=== PATIENT | female | born 1985 | race Caucasian/White ===

== ENCOUNTER → 2022-07-30 | Outpatient (CLI) | payer BC ==
[~2022-07-30] MED LIST: BETA300T PO; D3400CAP PO; GNP45TAB2 PO; IRONTAB2 PO; MULT1TAB7 PO; OMEGCAP PO; PROBCAP14 PO; VITATAB74 PO; [UNRECOGNIZED DRUG - CODE] XX
== END ==
LOC: M LABSMTC 09:36
PROVIDERS: ATTEND Anesthesiology
DX: Z01.818 Encounter for other preprocedural examination (principal); Z11.52 Encounter for screening for COVID-19

== ENCOUNTER 2022-08-04 06:58 | Day surgery (SDC) | payer BC ==
[~2022-08-04] VITALS: Ht 172.7 cm; Wt 65.3 kg
[~2022-08-04 06:58] MED LIST changes: +NS 1,000 ML IV ONE
[2022-08-04] MEDS ORDERED: LIDOCAINE 2% 100MG/5ML SDV (FOR ANES.) As Ordered ONE (07:00)
[2022-08-04] MEDS ORDERED: propofoL 200 MG/20 ML VIAL As Ordered ONE ×2 (07:00→08:32)
[2022-08-04] MEDS ORDERED: fentaNYL 100 MCG/2 ML INJECTION As Ordered ONE (07:13)
[2022-08-04 09:00] VITALS: BP 104/58
== END 2022-08-04 09:08 | disposition home or self-care (01) ==
LOC: M OPP 06:58
PROVIDERS: ATTEND Internal Medicine Gastroenterology
DX: D50.9 Iron deficiency anemia, unspecified (principal); K31.89 Other diseases of stomach and duodenum; Z80.3 Family history of malignant neoplasm of breast; Z80.7 Family history of other malignant neoplasms of lymphoid, hematopoietic and related tissues
CPT/HCPCS: 43239; 45378; 88305; J3010

== ENCOUNTER 2024-01-25 14:24 | Outpatient (CLI) | payer BC ==
[~2024-01-25] VITALS: Ht 172.7 cm; Wt 65.9 kg
[~2024-01-25 14:24] MED LIST changes: +CHOL10CA2 PO; -D3400CAP PO; -NS 1,000 ML IV ONE; +PROC25SU24 PR; +[UNRECOGNIZED DRUG - OTHER]
[2024-01-25 14:30] VITALS: BP 104/58; O2SAT 99
[2024-01-25] MEDS ORDERED: diphenhydrAMINE 25MG CAP PO ONE (14:30)
[2024-01-25] MEDS: IRON SUCROSE 300 MG in NS 250 ML OVER 90 MIN. IV ONE (14:36)
[2024-01-25] MEDS: ACETAMINOPHEN TAB 650MG DOSE (2X325MG) PO ONE (14:39)
[2024-01-25 16:26] VITALS: BP 95/57; O2SAT 100
== END 2024-01-25 16:30 | disposition home or self-care (01) ==
LOC: M INFU 14:24
PROVIDERS: ATTEND Internal Medicine Medical Oncology
DX: D50.9 Iron deficiency anemia, unspecified (principal)
CPT/HCPCS: 96365; 96366; J1756

== ENCOUNTER 2024-02-08 14:35 | Outpatient (CLI) | payer BC ==
[~2024-02-08] VITALS: Ht 172.7 cm; Wt 65.9 kg
[2024-02-08 14:35] VITALS: BP 102/60; O2SAT 96
[2024-02-08] MEDS: diphenhydrAMINE 25MG CAP PO ONE (15:00)
[2024-02-08] MEDS: ACETAMINOPHEN TAB 650MG DOSE (2X325MG) PO ONE (15:00)
[2024-02-08] MEDS: IRON SUCROSE 300 MG in NS 250 ML OVER 90 MIN. IV ONE (15:01)
[2024-02-08 16:36] VITALS: BP 108/66; O2SAT 98
== END 2024-02-08 16:35 ==
LOC: M INFU 14:35
PROVIDERS: ATTEND Internal Medicine Medical Oncology
DX: D50.9 Iron deficiency anemia, unspecified (principal)
CPT/HCPCS: 96365; 96366; J1756

== ENCOUNTER 2024-02-25 13:25 | Outpatient (CLI) | payer BC ==
[~2024-02-25] VITALS: Ht 172.7 cm; Wt 65.9 kg
[2024-02-25 13:20] VITALS: BP 116/65; O2SAT 100
[~2024-02-25 13:25] MED LIST changes: -PROC25SU24 PR; +PROC25SU27 PR
[2024-02-25] MEDS: IRON SUCROSE 300 MG in NS 250 ML OVER 90 MIN. IV ONE (13:26)
[2024-02-25] MEDS ORDERED: diphenhydrAMINE 25MG CAP PO ONE (13:30)
[2024-02-25] MEDS ORDERED: ACETAMINOPHEN TAB 650MG DOSE (2X325MG) PO ONE (13:30)
[2024-02-25 15:04] VITALS: BP 102/63; O2SAT 100
== END 2024-02-25 15:10 | disposition home or self-care (01) ==
LOC: M INFU 13:25
PROVIDERS: ATTEND Internal Medicine Medical Oncology
DX: E61.1 Iron deficiency (principal)
CPT/HCPCS: 96365; 96366; J1756